=== PATIENT | female | born 2005 | race Two or more races ===

== ENCOUNTER 2025-07-23 04:13 | Emergency (ER) | payer OTHER ==
[~2025-07-23] VITALS: Ht 157.5 cm; Wt 54.4 kg
[2025-07-23] MEDS ORDERED: ATARAX10 MG PO (04:53)
[2025-07-23] MEDS ORDERED: ZOLOFT25 MG PO (04:53)
[2025-07-23 04:56] VITALS: BP 102/68; O2SAT 100
[2025-07-23] MEDS ORDERED: ONDANSETRON HCL 2 MG/ML VIAL IV STA (05:21)
[2025-07-23] MEDS ORDERED: FAMOTIDINE/PF 20 MG/2 ML VIAL IV STA (05:21)
[2025-07-23] MEDS ORDERED: 0.9 % SODIUM CHLORIDE 1,000 ML IV STA (05:21)
[2025-07-23] MEDS ORDERED: ONDANSETRON HCL 2 MG/ML VIAL ONE (06:59)
[2025-07-23] MEDS ORDERED: FAMOTIDINE/PF 20 MG/2 ML VIAL ONE (06:59)
[2025-07-23 07:53] LABS: BASO % 0.5 % (0.1-1.2); EOS # 0.40 (0.04-0.54); EOS % 2.8 % (0.7-7.0); LYMPH # 3.64 (1.18-3.74); LYMPH % 25.4 % (19.3-53.1); MEAN PLATELET VOLUME 11.00 fl (9.4-12.4); MONO # 1.35 (0.24-0.82); MONO % 9.4 % (4.7-12.5); NEUT # 8.83 (1.56-6.13); NEUT % 61.6 % (34.0-71.1); RED CELL DISTRIBUTION WIDTH 12.1 % (11.6-14.4)
[2025-07-23 08:13] LABS: ERYTHROCYTE SEDIMENTATION RATE 5 mm/hr (0-20)
[2025-07-23 08:15] LABS: INR 1.03
[2025-07-23 08:25] LABS: ALT/SGPT 17.0 U/L (12-78); AST/SGOT 13.0 U/L (15-37); BILIRUBIN TOTAL 0.65 mg/dL (0.3-1.2); BUN CREA RATIO 32.0 (7.0-25.0); CREATININE SERUM 0.56 mg/dL (0.55-1.02); GFR 136.65; GLOBULINA 3.7 G/DL (2.4-3.5); GLUCOSE FASTING 91.0 mg/dL (65-100); OSMOLALITY SERUM 279.0 MOSM/KG (275-295)
[2025-07-23 08:48] LABS: URINE APPEARANCE Clear; URINE BILIRRUBIN Negative (NEGATIVE); URINE BLOOD Negative; URINE COLOR Yellow; URINE GLUCOSE Negative (NEGATIVE); URINE KETONE Negative (NEGATIVE); URINE LEUKOCYTE Trace; URINE NITRATE Negative; URINE PROTEIN Negative (NEGATIVE); URINE UROBILINOGEN 0.2 E.U./dl
[2025-07-23 08:52] LABS: URINE BACTERIA 726.1 uL (0.0-1933); URINE EPITHELIAL CELLS 17.6 uL (0.0-38.8); URINE RBC 5.0 uL (0.0-20.8); URINE WBC 21.9 uL (0.0-23.2)
[2025-07-23 09:24] LABS: URINE CAST 0.70 uL (0.0-1.40)
[2025-07-23] MEDS ORDERED: MAALOX ADVANCE355 ML PO (09:41)
== END 2025-07-23 09:58 | disposition home or self-care (01) ==
LOC: ER 04:14
PROVIDERS: Physician Assistant Medical
DX: K21.9 Gastro-esophageal reflux disease without esophagitis (principal)